=== PATIENT | female | born 1985 | race Caucasian/White ===

== ENCOUNTER → 2016-07-21 | Outpatient (CLI) | payer BC ==
--- NOTE | 2016-07-21 16:05 | DIAGNOSTIC IMAGING REPORT ---
LEFT KNEE 4 OR MORE CLINICAL HISTORY: Left medial knee pain COMPARISON: None. DISCUSSION: There are no acute fractures. There are no erosive or destructive changes. There is no radiographic evidence of a joint effusion. Sclerotic densities within the proximal tibia and distal femur likely represent bone islands. IMPRESSION: 1. Sclerotic densities within the proximal tibia and distal femur, likely represent bone islands. 2. No evidence of fracture. No evidence of erosive disease. Electronically signed by: Darvin Shane M.D. 07/21/2016 4:03 PM
== END | disposition home or self-care (01) ==
LOC: C.RDSM 14:24
PROVIDERS: ATTEND Family Medicine
DX: M25.562 Pain in left knee (principal); M85.862 Other specified disorders of bone density and structure, left lower leg